=== PATIENT | male | born 1960 | race Caucasian/White ===

== ENCOUNTER → 2024-04-03 13:26 | Outpatient (BNVA) | payer BC, SELFPAY | PROVIDERS: Family Provider Family Medicine; Visit Provider Family Medicine | DX: E03.9 Hypothyroidism, unspecified (principal); M25.50 Pain in unspecified joint; M79.10 Myalgia, unspecified site; M19.90 Unspecified osteoarthritis, unspecified site | CPT/HCPCS: 80053; 85025; 85651; 86038; 86140; 86618; 86666; 86757 ==

== ENCOUNTER → 2025-05-11 11:17 | Outpatient (BNVA) | payer BC, SELFPAY | PROVIDERS: Family Provider Family Medicine; PCP Family Medicine; Visit Provider Family Medicine | DX: Z00.00 Encounter for general adult medical examination without abnormal findings (principal); E03.9 Hypothyroidism, unspecified; M35.3 Polymyalgia rheumatica; M25.50 Pain in unspecified joint; M79.10 Myalgia, unspecified site; R39.11 Hesitancy of micturition | CPT/HCPCS: 80053; 80061; 82306; 83036; 84443; 85025; 86140; G0103 ==